=== PATIENT | male | born 1985 | race Caucasian/White ===

== ENCOUNTER 2024-06-11 08:58 | Observation (INO) ==
[2024-06-11 09:25] LABS: ABS Eosinophils 0.1 10^3/uL (0.0-0.5); ABS Lymphocytes 1.5 10^3/uL (1.0-4.8); ABS Monocytes 0.5 10^3/uL (0.0-1.1); ABS Neutrophils 5.1 10^3/uL (1.5-7.6); Eosinophil % 0.9 %; Hematocrit 43.8 % (38-53); Hemoglobin 15.4 g/dL (13.2-16.3); Lymphocyte % 21.2 %; Mean Corpuscular Hgb Conc 35.1 g/dL (31-36); Mean Corpuscular Volume 88.3 fL (80-97); Platelet Count 290 10^3/uL (150-450); Red Blood Count 4.96 10^6/uL (4.06-5.63); Red Cell Distribution Width 14.9 % (12-17); White Blood Count 7.2 10^3/uL (3.6-10.2)
[2024-06-11] MEDS ORDERED: Sulfur Hexaflouride MICROSPHR 25 MG VIAL IV PRN (09:35)
[2024-06-11 09:36] LABS: Activated Partial Thrombo Time 28.4 seconds (26.0-38.0); INR 1.12 (0.85-1.14)
[2024-06-11 09:47] LABS: Albumin 4.7 g/dL (3.5-5.7); Albumin/Globulin Ratio 1.6 (1-3); Calcium 9.3 mg/dL (8.6-10.3); Creatinine, Serum 0.98 mg/dL (0.67-1.17); Direct Bilirubin 0.1 mg/dL (0.03-0.18); Globulin 2.9 g/dL (2-4); HDL Cholesterol 46.2 mg/dL; Indirect Bilirubin 0.4 mg/dL (0.3-1.0); Total Bilirubin 0.5 mg/dL (0.2-1.0); Total Protein 7.6 g/dL (6.4-8.9); eGFR CKD-EPI 101.2 (>60)
[2024-06-11 10:49] LABS: High Sensitivity Troponin 1 Hr 3 pg/mL (<20)
[2024-06-11 13:05] LABS: TSH Ultra Thyroid Stim Horm 1.52 mcIU/mL (0.34-5.60)
[2024-06-11] MEDS: Iodixanol 320 (CONTRAST) 100 ML SDV IV ONE (21:06)
[2024-06-11 22:30] LABS: Urine Appearance Clear; Urine Bilirubin Negative (Negative); Urine Blood Negative (Negative); Urine Color Colorless; Urine Glucose Negative (Negative); Urine Ketones Negative (Negative); Urine Nitrite Negative (Negative); Urine Protein Negative (Negative); Urine Specific Gravity 1.009 (1.002-1.030); Urine Urobilinogen Negative (Negative); Urine pH 6.5 (5.0-8.0)
[2024-06-12 06:07] LABS: ABS Basophils 0.1 10^3/uL (0.0-0.1); ABS Eosinophils 0.1 10^3/uL (0.0-0.5); ABS Lymphocytes 2.6 10^3/uL (1.0-4.8); ABS Monocytes 0.5 10^3/uL (0.0-1.1); ABS Neutrophils 4.9 10^3/uL (1.5-7.6); ABS Nucleated RBC 0.01 10^3/ul; Eosinophil % 1.8 %; Hemoglobin 14.6 g/dL (13.2-16.3); Lymphocyte % 31.3 %; Mean Corpuscular Volume 88.2 fL (80-97); Mean Platelet Volume 7.1 fL (7.5-11.2); Nucleated Red Blood Cells % 0.1 %/100WBC (0.0-0.8); Platelet Count 268 10^3/uL (150-450); Red Blood Count 4.87 10^6/uL (4.06-5.63); White Blood Count 8.2 10^3/uL (3.6-10.2)
[2024-06-12 06:49] LABS: Calcium 8.7 mg/dL (8.6-10.3); Creatinine, Serum 0.86 mg/dL (0.67-1.17); Potassium 4.3 mmol/L (3.5-5.0); eGFR CKD-EPI 113.7 (>60)
[2024-06-12 10:21] VITALS: BP 129/81
== END 2024-06-12 12:10 | disposition home or self-care (01) ==
LOC: ED 08:58 → EDHOLD 08:58 → SUATTDRO 10:18 → MEDTELE 12:35
PROVIDERS: ADMIT Hospitalist; ATTEND Student in an Organized Health Care Education/Training Program